=== PATIENT | female | born 1995 | race American Indian/Alaskan Native ===

== ENCOUNTER → 2020-06-26 10:04 | Outpatient (CLI) | payer OTHER | END | disposition home or self-care (01) | LOC: LAB 10:04 | PROVIDERS: ATTEND Specialist | DX: D64.89 Other specified anemias (principal) ==

== ENCOUNTER 2020-07-18 11:46 | Outpatient (CLI) | payer OTHER | END 2020-07-18 11:47 | disposition home or self-care (01) | LOC: LAB 11:46 | PROVIDERS: ATTEND Specialist | DX: D50.8 Other iron deficiency anemias (principal); D68.8 Other specified coagulation defects ==

== ENCOUNTER 2020-08-06 09:50 | Outpatient (CLI) | payer OTHER | END 2020-08-06 09:58 | disposition home or self-care (01) | LOC: LAB 09:50 | PROVIDERS: ATTEND Specialist | DX: Z34.03 Encounter for supervision of normal first pregnancy, third trimester (principal); D50.8 Other iron deficiency anemias ==

== ENCOUNTER 2020-08-27 07:30 | Inpatient (IN) | payer OTHER ==
[~2020-08-27] VITALS: Ht 170.2 cm; Wt 88.0 kg
== END 2020-09-01 15:17 | DRG 807 ==
LOC: OB/GYN 07:30 → LDR 08-29 19:04 → OB/GYN 08-29 19:04
PROVIDERS: ADMIT Specialist; ATTEND Specialist
PROC: 4A1HXCZ Monitoring of Products of Conception, Cardiac Rate, External Approach (ICD-10-PCS; 2020-08-29)
PROC: 10E0XZZ Delivery of Products of Conception, External Approach (ICD-10-PCS; principal; 2020-08-30)
PROC: 0HQ9XZZ Repair Perineum Skin, External Approach (ICD-10-PCS; 2020-08-30)
PROC: 3E033VJ Introduction of Other Hormone into Peripheral Vein, Percutaneous Approach (ICD-10-PCS; 2020-08-30)
DX: O70.0 First degree perineal laceration during delivery (principal); Z37.0 Single live birth; Z3A.39 39 weeks gestation of pregnancy; Z20.828 Contact with and (suspected) exposure to other viral communicable diseases

== ENCOUNTER 2020-08-29 09:54 | Outpatient (CLI) | payer OTHER | END 2020-08-29 09:59 | disposition home or self-care (01) | LOC: LAB 09:54 | PROVIDERS: ATTEND General Practice | DX: D50.8 Other iron deficiency anemias (principal) ==